=== PATIENT | male | born 1970 | race Caucasian/White ===

== ENCOUNTER → 2024-09-27 | Outpatient (CLI) | payer OTHER ==
--- NOTE | 2024-09-27 13:47 | CTL ---
EXAMINATION TYPE: CT Low Dose Lung DATE OF EXAM: 09/27/2024 9:42 AM COMPARISON: None. CLINICAL INDICATION: Male, 53 years old with history of Z12.2 ENCNTR SCREEN FOR MALIGNANT NEOPLASM F1 7.210, Encounter for malignant neoplasm, Nicotine dependence, History of tobacco use. Former smoker w ith a 25 pack-year history TECHNIQUE: Low dose computed tomography scan was performed through the chest at 1 mm thick sections a nd reconstructed images in multiple planes at 1 mm and [address] DLP: 134.40 mGycm, CT CTDI: 3.30 mGy, Automated exposure control for dose reduction was used. CT DIAGNOSTIC QUALITY: Satisfactory FINDINGS: The heart is normal size without pericardial effusion. No significant coronary calcifications. Aorta normal caliber with bovine configuration to the aortic arch. No thoracic lymphadenopathy by CT size criteria. Mild emphysematous change. No consolidation or pleural effusion. * 5 mm right middle lobe pulmonary nodule, axial image 211. * 1 cm posterior right lower lobe pulmonary nodule, axial image 198. * 4 mm medial right upper lobe pulmonary nodule, axial image 111. * 2 and 3 mm right upper lobe pulmonary nodules, axial image 110 and 112. * 4 mm fissural pulmonary nodule anterior right midlung, axial image 165. * A couple 4 mm fissural pulmonary nodules left midlung, axial image 152 and 155. Tiny hiatal hernia. Otherwise, visualized upper abdomen shows no gross abnormality. Bones: Mild degenerative disc disease mid thoracic spine. IMPRESSION: 1. LungRADS Category 4A (suspicious, 5-15% chance of malignancy); a few scattered pulmonary nodules, the largest measuring 1 cm in the right lower lobe on baseline screening. 2. COPD with mild emphysema. CT LUNG RAD AND CT CHEST RECOMMENDATION: Lung-Rad 4A Suspicious: Follow-up 3 month LDCT or PET/CT may be used when there is a > 8 mm solid component. S Modifier (other clinically significant findings): None [facility], Workstation: [id number], 09/27/2024 1:44 PM
== END | disposition home or self-care (01) ==
LOC: RADCTMAIN 08:39
PROVIDERS: ATTEND Family Medicine
DX: Z12.2 Encounter for screening for malignant neoplasm of respiratory organs (principal); F17.210 Nicotine dependence, cigarettes, uncomplicated; J44.9 Chronic obstructive pulmonary disease, unspecified; J43.9 Emphysema, unspecified
CPT/HCPCS: 71271